=== PATIENT | female | born 1945 | race Caucasian/White ===

== ENCOUNTER 2023-05-11 14:40 | Observation (INO) ==
[2023-05-11 15:04] LABS: BASOPHILS % (AUTO) 0.3 % (0.0-3.0); EOSINOPHILS % (AUTO) 0.2 % (0.0-7.0); HEMOGLOBIN 11.6 g/dl (12.0-16.0); IMMATURE GRANULOCYTE % (AUTO) 0.2 % (0.0-5.0); LYMPHOCYTES % (AUTO) 14.6 (10.0-50.0); MEAN CORPUSCULAR HEMOGLOBIN 27.1 pg (27.0-31.0); MEAN CORPUSCULAR HGB CONC 31.4 (31.8-35.4); MEAN CORPUSCULAR VOLUME 86.4 fl (81.0-99.0); MONOCYTES # (AUTO) 0.8 K/uL (0.4-2.0); MONOCYTES % (AUTO) 12.2 (0-10); NEUTROPHILS # (AUTO) 4.8 K/ul (2.0-6.9); NEUTROPHILS % (AUTO) 72.5 % (42.2-75.2); PLATELET COUNT 161 10^3/uL (140-440); RDW COEFFICIENT OF VARIATION 15.3 % (11.6-14.8); RED BLOOD COUNT 4.28 10^6/ul (4.20-5.40); WHITE BLOOD COUNT 6.66 K/ul (4.6-10.2)
[2023-05-11 15:20] LABS: ALANINE AMINOTRANSFERASE 19.1 U/L (0-35); ALBUMIN 4.14 g/dL (3.5-5.0); ASPARTATE AMINO TRANSFERASE 31.5 U/L (14-36); BILIRUBIN,TOTAL 0.58 mg/dL (0.2-1.3); BLOOD UREA NITROGEN 29.8 mg/dL (7-17); CALCIUM 9.31 mg/dL (8.4-10.2); CARBON DIOXIDE 31.4 mmol/L (22-30.0); CHLORIDE 99.5 mmol/L (98-107); CREATININE 1.04 mg/dL (0.60-1.30); POTASSIUM 3.62 mmol/L (3.5-5.1); SODIUM 137.7 mmol/L (134.5-145); TOTAL PROTEIN 8.9 g/dL (6.3-8.2)
--- NOTE | 2023-05-11 15:46 | ED.PDOC ---
General ED Provider: Dr. CHRISTIANE MOORE DO Chief Complaint: Weakness Stated Complaint: Patient is a 78 yo F here for family concern for diarrhea at SNF patient arrives afebrile and vitally stable by EMS, no interventions en route Patient alert and oriented x4 CGS 15 Patient has no complaints I explained her SNF and family concern She allows for blood draw swabs UA and declines advanced CT imaging Patient declines falls or injuries No recent surgeries Patient stable Time Seen by Provider: 05/11/23 14:42 Information Source: Patient, Family and EMT Primary Care Provider: VALENTINO GARCES Nursing and Triage Documentation Reviewed and Agree: Yes What is Opioid Naive?: *Opioid Naive implies the patient is not already taking opioids or not chronically receiving opioids on a daily basis. *PRN dosing is not "usually" associated with tolerance. *Patients are at higher risk of over-sedation and aspiration. What is Opioid Tolerant?: *Opioid Tolerance implies less than the expected response to an opioid. *Acquired tolerance is defined by the patient taking 60mg of oral morphine daily (or equianalgesic dose of another opioid) for 1 week or more. *Often associated with chronic pain. *May take more than usual dose to achieve desired pain control. Review of Systems Review Of Systems Constitutional: Denies Chills or Fever Eyes: Denies Blindness or Foreign body sensation Ears, Nose, Mouth, Throat: Denies Ear pain or Nose pain Respiratory: Denies Cough or Stridor Cardiac: Denies Chest pain, Palpitations or Syncope GI: Denies Abdominal pain, Constipated or Diarrhea : Denies Burning, Dysuria or Flank pain Musculoskeletal: Denies Back pain or Joint pain Skin: Denies Bruising or Change in hair/nails Neurological: Reports No symptoms Endocrine: Reports No symptoms Hematologic/Lymphatic: Reports No symptoms All Other Systems: Reviewed and Negative Physical Exam Physical Exam Appearance: Reports Well-appearing, Well-nourished and Obese Ill-appearing: Not Applicable Pain Distress: Not Applicable Eyes: Reports WANDA, EOMI and Conjunctiva clear ENT: Reports Ears normal, Nose normal and Oropharynx normal Neck: Supple Respiratory: Reports Airway patent and Breath sounds clear; Denies Crackles, Rhonchi or Wheezes Cardiovascular: Reports RRR and Pulses normal GI/: Reports Soft and Nontender Musculoskeletal: Reports Normal strength and ROM intact Skin: Reports Warm, Dry and Normal color Neurological: Reports Sensation intact and Motor intact Psychiatric: Reports Affect appropriate and Mood appropriate Interpretation EKG Interpretation EKG Interpretation By: ED Physician Time of EKG #1: 17:16 Interpretation: NSR no stemi QRS and QT wnl Radiology Interpretation Radiology Interpretation By: ED Physician Radiology Results: Negative Exam Interpreted: CXR Xray Comments: No gross fracture or pneumothorax Course Course 05/11/23 14:58 05/11/23 14:58 Orders, Labs, Meds: Lab Review 05/11/23 05/11/23 05/11/23 14:58 15:25 17:11 WBC 6.66 RBC 4.28 Hgb 11.6 L Hct 37.0 MCV 86.4 MCH 27.1 MCHC 31.4 L RDW Coeff of Venus 15.3 H Plt Count 161 Immature Gran % (Auto) 0.2 Neut % (Auto) 72.5 Lymph % (Auto) 14.6 [place] % (Auto) 12.2 H Eos % (Auto) 0.2 Baso % (Auto) 0.3 Neut # (Auto) 4.8 Lymph # (Auto) 1.0 [place] # (Auto) 0.8 Eos # (Auto) 0.0 Baso # (Auto) 0.0 Immature Gran # (Auto) 0.0 Puncture Site Base Excess O2 Saturation ABG pH ABG pCO2 ABG pO2 ABG HCO3 ABG Total CO2 Ernesto Test Hemoglobin Oxyhemoglobin Carboxyhemoglobin Total Hemoglobin FiO2 % Sodium 137.7 Potassium 3.62 Chloride 99.5 Carbon Dioxide 31.4 H Anion Gap 10.42 BUN 29.8 H Creatinine 1.04 Estimated GFR (MDRD) 51.00 BUN/Creatinine Ratio 28.65 Glucose 141.0 H Calcium 9.31 Total Bilirubin 0.58 AST 31.5 ALT 19.1 Alkaline Phosphatase 93.0 Troponin I < 0.012 Total Protein 8.90 H Albumin 4.14 Globulin 4.76 Albumin/Globulin Ratio 0.86 Influ A Molecular Assay Negative by naat Influ B Molecular Assay Negative by naat RSV Antigen Negative by naat SARS CoV-2 RNA Rapid YAENT Positive H 05/11/23 17:12 WBC RBC Hgb Hct MCV MCH MCHC RDW Coeff of Venus Plt Count Immature Gran % (Auto) Neut % (Auto) Lymph % (Auto) [place] % (Auto) Eos % (Auto) Baso % (Auto) Neut # (Auto) Lymph # (Auto) [place] # (Auto) Eos # (Auto) Baso # (Auto) Immature Gran # (Auto) Puncture Site [place] Base Excess 10.0 H O2 Saturation 92.1 L ABG pH 7.48 H ABG pCO2 45.0 ABG pO2 59.0 L* ABG HCO3 33.5 H ABG Total CO2 34.9 H Ernesto Test Pos Hemoglobin 0.4 Oxyhemoglobin 88.4 L Carboxyhemoglobin 0.7 Total Hemoglobin 11.0 L FiO2 % 21.0 Sodium Potassium Chloride Carbon Dioxide Anion Gap BUN Creatinine Estimated GFR (MDRD) BUN/Creatinine Ratio Glucose Calcium Total Bilirubin AST ALT Alkaline Phosphatase Troponin I Total Protein Albumin Globulin Albumin/Globulin Ratio Influ A Molecular Assay Influ B Molecular Assay RSV Antigen SARS CoV-2 RNA Rapid YANET Orders Category Date Time Status ADMIT OBSERVATION [PLACE PATIENT OBSERVATION] .TO ADMISSION 05/11/23 18:48 Active MEDSURG (MONITORED BED) ABG DRAW REQUEST Stat CARDIO 05/11/23 16:59 Completed EKG-(ED ONLY) Stat CARDIO 05/11/23 16:59 Completed NEBULIZER TREATMENT Routine CARDIO 05/11/23 19:14 Ordered OXYGEN Routine CARDIO 05/11/23 19:11 Ordered ACTIVITY .Early Mobilization for VTE Prevention CARE 05/11/23 19:11 Active INTAKE & OUTPUT Q8HR CARE 05/11/23 19:13 Active NPO REMINDER: IMAGING ONCE CARE 05/11/23 16:59 Active TELEMETRY MONITORING TELE CARE 05/11/23 18:48 Active VITAL SIGNS Q4HR CARE 05/11/23 19:13 Active REGULAR DIET DIETARY 05/12/23 Breakfast Ordered ABG COOX Stat LAB 05/11/23 17:12 Completed CBC W/ AUTO DIFF DAILY@0600 LAB 05/12/23 06:00 Ordered CBC W/ AUTO DIFF DAILY@0600 LAB 05/13/23 06:00 Ordered CBC W/ AUTO DIFF Stat LAB 05/11/23 14:58 Completed CMP [COMPREHENSIVE METABOLIC PANEL] Stat LAB 05/11/23 14:58 Completed COMPREHENSIVE METABOLIC PANEL DAILY@0600 LAB 05/12/23 06:00 Ordered COMPREHENSIVE METABOLIC PANEL DAILY@0600 LAB 05/13/23 06:00 Ordered FLU A & B MOLECULAR [FLU A/B MOLECULAR] Stat LAB 05/11/23 15:25 Completed RSV Stat LAB 05/11/23 15:25 Completed SARS COV-2 RNA RAPID YANET Stat LAB 05/11/23 15:25 Completed TROPONIN I Stat LAB 05/11/23 17:11 Completed UA [URINALYSIS C & S IF INDICATED] Stat LAB 05/11/23 14:42 Uncollected Acetaminophen [Tylenol] Meds 05/11/23 19:11 Ordered 650 mg PO Q4H PRN Albuterol Sulfate 0.083% Neb [Albuterol 0.083% Neb] Meds 05/11/23 19:14 Ordered 2.5 mg NEB RTQID PRN Dexamethasone Sod Phosphate [Decadron] Meds 05/12/23 09:00 Ordered 6 mg IVP DAILY Ipratropium/Albuterol Neb [Duoneb] Meds 05/12/23 00:00 Ordered 3 ml NEB RTQ6H Ondansetron HCl/Pf [Zofran 4 mg/2 ml] Meds 05/11/23 19:11 Ordered 4 mg IVP Q6H PRN Remdesivir [Veklury] 100 mg Meds 05/12/23 09:00 Ordered 0.9 % Sodium Chloride [Sodium Chloride 100Ml] 100 ml IV DAILY Remdesivir [Veklury] 200 mg Meds 05/11/23 19:11 Ordered 0.9 % Sodium Chloride [Sodium Chloride] [address] CHEST PE PROTOCOL Stat RADS 05/11/23 16:59 Completed CXR [CHEST, 2 VIEWS PA & LAT] Stat RADS 05/11/23 14:42 Completed Medications Generic Name Dose Route Start Last Admin Trade Name Freq PRN Reason Stop Dose Admin Acetaminophen 650 mg 05/11/23 19:11 Acetaminophen 325 Mg Tablet PO Q4H PRN Mild Pain Albuterol Sulfate 2.5 mg 05/11/23 19:14 Albuterol Sulfate 0.083% Vial.Neb NEB RTQID PRN Wheezing Albuterol/Ipratropium 3 ml 05/12/23 00:00 Ipratropium/Albuterol Vial.Neb NEB RTQ6H RIVER Dexamethasone Sodium Phosphate 6 mg 05/12/23 09:00 Dexamethasone Sod Phos 10 Mg/Ml Inj IVP DAILY RIVER Remdesivir 200 mg/ Sodium 250 mls @ 250 mls/hr 05/11/23 19:11 Chloride IV 05/11/23 20:10 ONCE ONE Remdesivir 100 mg/ Sodium 100 mls @ 200 mls/hr 05/12/23 09:00 Chloride IV 05/15/23 09:29 DAILY RIVER Ondansetron HCl 4 mg 05/11/23 19:11 Ondansetron Hcl/Pf 4 Mg/2 Ml Sdv IVP Q6H PRN Nausea / Vomiting Vital Signs: Temp Pulse Resp BP Pulse Ox 05/11/23 14:55 98 F 78 14 166/77 H 96 MDM: Patient is a 78 yo F here for viral symptoms Patient afebrile and hypoxic 90% 95% w 2 L NC Hx from patient and daughter and EMS chart review by me Exam concerning for hypoxia 3+ labs and 3+ image results reviewed by me Consult to hospitalist agrees with admission for covid hypoxia WDX: Covid 19, hypoxia, loose stools acute high complexity DDX: I considered shock, PE, stemi but these are less likely SDOH: Patient has best chance to improve with admission and further specialty care Patient amenable to admission All questions answered Discharge Plan Discharge Patient Disposition: PLACED OBSERVATION Discharge Problem: COVID-19, Hypoxia Did you review [place] [employer]GER for ALL controlled substances?: Not Applicable ED Provider: CHRISTIANE MOORE Condition: Good Physician Progress Note: []
[2023-05-11 16:03] LABS: SARS COV-2 RNA RAPID NAAT POSITIVE (NEGATIVE)
[2023-05-11 16:11] LABS: MOLECULAR FLU A NEGATIVE BY NAAT (NEGATIVE); MOLECULAR FLU B NEGATIVE BY NAAT (NEGATIVE); RSV MOLECULAR NEGATIVE BY NAAT (NEGATIVE)
--- NOTE | 2023-05-11 16:14 | DI ---
EXAM: CHEST RADIOGRAPH TECHNIQUE: Two views. Frontal and lateral. HISTORY: Weakness COMPARISON: 07/30/2022 FINDINGS: The patient's chin overlies the right lung apex. The visualized lungs are clear. The heart size is normal. Marked thoracic kyphosis with anterior wedging of mid-thoracic vertebral bodies. Previous left nayana l ORIF. IMPRESSION: 1. No acute cardiopulmonary disease.
[2023-05-11 17:32] LABS: ABG O2 HGB 88.4 % (95-100); ABG PH 7.48 (7.35-7.45); COHb 0.7 (0.5-1.5); HCO3 33.5 (21-28); MetHb 0.4 (0-1.5); TCO2 34.9 (19-24); sO2 92.1 % (94-98)
--- NOTE | 2023-05-11 18:37 | CT ---
EXAM: CT ANGIOGRAPHY CHEST (PE PROTOCOL) HISTORY: COVID-19, hypoxia TECHNIQUE: CTA chest with intravenous contrast. PE protocol. Multiplanar images were provided with MIP images and 3-D reconstructions. COMPARISON: None FINDINGS: Excessive respiratory motion artifact degrades image quality. No suggestion of pulmonary arterial thromboembolism is seen. The thoracic aorta has mild atherosclerotic disease. A few coron faby artery calcifications are present. There is mild cardiomegaly. No pericardial effusion. There is mild atelectasis, scarring or infiltrate/pneumonia in the lateral lower aspect of the right upper lobe. Lungs are otherwise grossly clear. There is no pneumothorax, pleural fluid or vascular conges tion. No interstitial edema. The bones reveal exaggerated thoracic kyphosis. IMPRESSION: 1. Excessive respiratory motion artifact degrades image quality. No suggestion of pulmonary arteria l thromboembolism is seen. 2. Mild atherosclerotic disease. 3. Mild cardiomegaly. 4. There is mild atelectasis, scarring or infiltrate/pneumonia in the lateral lower aspect of the ri ght upper lobe. Lungs are otherwise grossly clear. - - - - - All CT scans are performed using dose optimization techniques as appropriate to the performed exam an d include at least one of the following: Automated exposure control, adjustment of the mA and/or kV according t o size, and the use of iterative reconstruction technique.
[2023-05-11] MEDS ORDERED: TYLENOL PO PRN (19:11)
[2023-05-11] MEDS ORDERED: ZOFRAN 4 MG/2 ML IVP PRN (19:11)
[2023-05-11] MEDS ORDERED: ALBUTEROL 0.083% NEB NEB PRN (19:14)
[2023-05-11 22:39] VITALS: BMI 41.5
[2023-05-11] MEDS: DUONEB NEB SCH (23:43)
[2023-05-12] MEDS: DUONEB NEB SCH ×3 (04:47→17:55)
[2023-05-12 05:57] LABS: BASOPHILS % (AUTO) 0.2 % (0.0-3.0); EOSINOPHILS % (AUTO) 0.2 % (0.0-7.0); HEMATOCRIT 35.2 % (37.0-47.0); HEMOGLOBIN 10.9 g/dl (12.0-16.0); LYMPHOCYTES # (AUTO) 1.5 K/uL (0.60-3.4); LYMPHOCYTES % (AUTO) 27.1 (10.0-50.0); MEAN CORPUSCULAR HEMOGLOBIN 26.7 pg (27.0-31.0); MEAN CORPUSCULAR VOLUME 86.1 fl (81.0-99.0); MONOCYTES % (AUTO) 17.4 (0-10); NEUTROPHILS % (AUTO) 55.1 % (42.2-75.2); PLATELET COUNT 160 10^3/uL (140-440); RDW COEFFICIENT OF VARIATION 15.3 % (11.6-14.8); RED BLOOD COUNT 4.09 10^6/ul (4.20-5.40); WHITE BLOOD COUNT 5.47 K/ul (4.6-10.2)
[2023-05-12 06:11] LABS: ALANINE AMINOTRANSFERASE 17.9 U/L (0-35); ALBUMIN 3.85 g/dL (3.5-5.0); ALKALINE PHOSPHATASE 89.6 U/L (53-141); ASPARTATE AMINO TRANSFERASE 41.5 U/L (14-36); BILIRUBIN,TOTAL 0.64 mg/dL (0.2-1.3); BLOOD UREA NITROGEN 21.7 mg/dL (7-17); CALCIUM 8.79 mg/dL (8.4-10.2); CARBON DIOXIDE 28.9 mmol/L (22-30.0); CHLORIDE 101.3 mmol/L (98-107); CREATININE 0.83 mg/dL (0.60-1.30); GLUCOSE 115.8 mg/dL (74-106); POTASSIUM 3.42 mmol/L (3.5-5.1); SODIUM 136.7 mmol/L (134.5-145); TOTAL PROTEIN 8.31 g/dL (6.3-8.2)
[2023-05-12] MEDS ORDERED: K-DUR PO ONE ×2 (08:08→10:30)
[2023-05-12 08:49] LABS: PROTHROMBIN TIME 10.5 SEC (9.3-11.0)
[2023-05-12] MEDS ORDERED: VEKLURY 200 MG in SODIUM CHLORIDE 250 ML IV ONE (09:00)
[2023-05-12] MEDS ORDERED: NORCO 5-325 PO PRN (10:54)
[2023-05-12] MEDS ORDERED: HYDROCHLOROTHIAZIDE 12.5 MG PO SCH (11:00)
[2023-05-12] MEDS ORDERED: PROTONIX PO SCH (11:00)
[2023-05-12] MEDS ORDERED: BUSPAR PO PRN (11:00)
[2023-05-12] MEDS: DECADRON IVP SCH (11:17)
[2023-05-12] MEDS: ALTACE PO SCH (12:10)
[2023-05-12] MEDS: CARDIZEM CD PO SCH (12:10)
[2023-05-12] MEDS: INDERAL PO SCH (12:10)
[2023-05-12] MEDS: MYRBETRIQ PO SCH (12:10)
[2023-05-12] MEDS: NEURONTIN PO SCH ×2 (12:11→20:42)
[2023-05-12] MEDS: LEXAPRO PO SCH (12:11)
[2023-05-12] MEDS: FLONASE NAS PRN (12:12)
[2023-05-12] MEDS: NYSTOP POWDER TP SCH ×2 (12:12→21:11)
[2023-05-12] MEDS: HYDROCHLOROTHIAZIDE PO SCH (12:12)
--- NOTE | 2023-05-12 14:00 | PCM ---
Date of Service Date Seen by Provider: 05/12/23 Time Seen by Provider: 09:35 Admit Day/Time Admission Date: 05/11/23 Reason for Admission Chief Complaint: COVID +, HYPOXIA Hospital Provider Hospital Provider: PAYAL LEONG, [facility] Primary Care Physician Primary Care Physician: VALENTINO GARCES History of Present Illness History of Present Illness: 78 yo female presented to the ER with diarrhea over last several days. Patient has pmh of dementia and is unable to provide HPI. She does report not feeling well over the last several days and her daughter brought her here. Per ER provider, patient was found to be hypoxic in the ER with O2 sat around 90%. Placed on 2L and sat improved to 95-96%. Patient was found to be Covid positive. 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 She has been refusing medications to help with treatment of Covid-19. Discussed importance of them and is refusing all IV medications to help with condition. If condition continues to worsen, will have further discussion with family. Case Discussed With Case Discussed With: Patient's case was discussed with the ER Physicians, Dr. 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 - Other intervertebral disc degeneration, lumbar region (ICD-10) Scoliosis M41.9 - Scoliosis, unspecified (ICD-10) Fibromyalgia M79.7 - Fibromyalgia (ICD-10) Osteoporosis M81.0 - Age-related osteoporosis without current pathological fracture (ICD- 10) Diabetes type 2, controlled E11.9 - Type 2 diabetes mellitus without complications (ICD-10) Surgical History History of bilateral breast reduction surgery Z98.890 - Other specified postprocedural states (ICD-10) Hx of tonsillectomy Z90.89 - Acquired absence of other organs (ICD-10) Hx of cholecystectomy Z90.49 - Acquired absence of other specified parts of digestive tract (ICD- 10) History of appendectomy Z90.49 - Acquired absence of other specified parts of digestive tract (ICD- 10) Family History Other No known health problems Social History Smoking and tobacco status: Former smoker Allergies Allergies Allergy/AdvReac Type Severity Reaction Status Date / Time No Known Allergies Allergy Unverified 05/11/23 21:32 Current Medications Home Medications nirmatrelvir 300 mg (150 mg x2)-ritonavir 100 mg tablet,dose pack (Paxlovid) See Rx Instructions PO .COMPLEX #30 ea 05/11/23 [Rx Last Taken Unknown] buspirone 5 mg tablet 5 mg PO TID PRN anxiety 05/12/23 [History Confirmed 05/12/23 Last Taken Unknown] diltiazem HCl 120 mg capsule,extended release 24 hr (Cardizem CD) 120 mg PO DAILY 05/12/23 [History Confirmed 05/12/23 Last Taken Unknown] escitalopram oxalate 20 mg tablet 20 mg PO DAILY 05/12/23 [History Confirmed 05/12/23 Last Taken Unknown] fluticasone propionate 50 mcg/actuation nasal spray,suspension (24 Hour Allergy Relief) 1 spray intranasal DAILY PRN allergy symptoms 05/12/23 [History Confirmed 05/12/23 Last Taken Unknown] gabapentin 600 mg tablet 600 mg PO BID 05/12/23 [History Confirmed 05/12/23 Last Taken Unknown] hydrochlorothiazide 12.5 mg capsule 12.5 mg PO DAILY 05/12/23 [History Confirmed 05/12/23 Last Taken Unknown] hydrocodone 5 mg-acetaminophen 325 mg tablet 1 tab PO Q6H 05/12/23 [History Confirmed 05/12/23 Last Taken Unknown] insulin glargine 100 unit/mL (3 mL) subcutaneous pen (Lantus Solostar U-100 Insulin) 20 unit subcut DAILY 05/12/23 [History Confirmed 05/12/23 Last Taken Unknown] insulin lispro 100 unit/mL subcutaneous pen 1 sliding scale dose subcut DIRECTED 05/12/23 [History Confirmed 05/12/23 Last Taken Unknown] mirabegron 25 mg tablet,extended release 24 hr (Myrbetriq) 25 mg PO DAILY 05/12/23 [History Confirmed 05/12/23 Last Taken Unknown] nystatin 100,000 unit/gram topical powder 1 applic topical BID 05/12/23 [History Confirmed 05/12/23 Last Taken Unknown] pantoprazole 40 mg tablet,delayed release 40 mg PO BID 05/12/23 [History Confirmed 05/12/23 Last Taken Unknown] propranolol 20 mg tablet 20 mg PO DAILY 05/12/23 [History Confirmed 05/12/23 Last Taken Unknown] ramipril 5 mg capsule 5 mg PO DAILY 05/12/23 [History Confirmed 05/12/23 Last Taken Unknown] Home Acetaminophen (Acetaminophen 325 Mg Tablet) 650 mg PO Q4H PRN PRN Reason: Mild Pain Hydrocodone Bitart/Acetaminophen (Hydrocodone Bit/Acetaminophen 5/325 Mg Tablet) 1 tab PO Q6H PRN PRN Reason: Pain Albuterol Sulfate (Albuterol Sulfate 0.083% Vial.Neb) 2.5 mg NEB RTQID PRN PRN Reason: Wheezing Albuterol/Ipratropium (Ipratropium/Albuterol Vial.Neb) 3 ml NEB RTQ6H [facility] Last Admin: 05/12/23 11:22 Dose: 3 ml Buspirone HCl (Buspirone Hcl 10 Mg Tablet) 5 mg PO TID PRN PRN Reason: Anxiety Last Admin: 05/12/23 12:11 Dose: 5 mg Dexamethasone Sodium Phosphate (Dexamethasone Sod Phos 10 Mg/Ml Inj) 6 mg IVP DAILY [facility] Last Admin: 05/12/23 11:17 Dose: Not Given Diltiazem HCl (Diltiazem Hcl 120 Mg Cap.Er.24h) 120 mg PO DAILY [facility] Last Admin: 05/12/23 12:10 Dose: 120 mg Escitalopram Oxalate (Escitalopram Oxalate 10 Mg Tablet) 20 mg PO DAILY [facility] Last Admin: 05/12/23 12:11 Dose: 20 mg Fluticasone Propionate (Fluticasone Propionate 16 Gm Nasal [place]) 1 spray IRENA DAILY PRN PRN Reason: Allergy Symptoms Last Admin: 05/12/23 12:12 Dose: 1 spray Gabapentin (Gabapentin 300 Mg Capsule) 600 mg PO BID [facility] Last Admin: 05/12/23 12:11 Dose: 600 mg Hydrochlorothiazide (Hydrochlorothiazide 25 Mg Tablet) 12.5 mg PO DAILY [facility] Last Admin: 05/12/23 12:12 Dose: 12.5 mg Remdesivir 100 mg/ Sodium (Chloride) 100 mls @ 200 mls/hr IV DAILY [facility] Stop: 05/16/23 09:29 Insulin Glargine (Insulin Glargine,Hum.Rec.Anlog 100 Units/Ml) 20 unit SUBCUT DAILY [facility] Insulin Human Lispro (Insulin Lispro 100 Unit/Ml Vial) 0 unit SUBCUT PRN PRN; Protocol PRN Reason: Hyperglycemia Mirabegron (Mirabegron 25 Mg Tab.Er.24h) 25 mg PO DAILY [facility] Last Admin: 05/12/23 12:10 Dose: 25 mg Nystatin (Nystatin 15 Gm Powder) 1 applic TP BID [facility] Last Admin: 05/12/23 12:12 Dose: 1 applic Ondansetron HCl (Ondansetron Hcl/Pf 4 Mg/2 Ml Sdv) 4 mg IVP Q6H PRN PRN Reason: Nausea / Vomiting Pantoprazole Sodium (Pantoprazole Sodium 40 Mg Tablet.) 40 mg PO 0900,2100 [facility] Propranolol HCl (Propranolol Hcl 20 Mg Tablet) 20 mg PO DAILY [facility] Last Admin: 05/12/23 12:10 Dose: 20 mg Ramipril (Ramipril 2.5 Mg Capsule) 5 mg PO DAILY [facility] Last Admin: 05/12/23 12:10 Dose: 5 mg Discontinued Medications Buspirone HCl (Buspirone Hcl 10 Mg Tablet) 5 mg PO TID [facility] Remdesivir 200 mg/ Sodium (Chloride) 250 mls @ 250 mls/hr IV ONCE ONE Stop: 05/12/23 09:59 Last Admin: 05/12/23 13:23 Dose: Not Given Pantoprazole Sodium (Pantoprazole Sodium 40 Mg Tablet.) 40 mg PO BIDAC2 [facility] Potassium Chloride (Potassium Chloride 20 Meq Tab) 40 meq PO ONCE ONE Stop: 05/12/23 10:31 Last Admin: 05/12/23 10:28 Dose: 40 meq Opioid Naive vs. Tolerant Does Patient Take Opioids?: Yes Is Patient Opioid Naive?: No What is Opioid Naive?: *Opioid Naive implies the patient is not already taking opioids or not chronically receiving opioids on a daily basis. *PRN dosing is not "usually" associated with tolerance. *Patients are at higher risk of over-sedation and aspiration. Is Patient Opioid Tolerant?: No What is Opioid Tolerant?: *Opioid Tolerance implies less than the expected response to an opioid. *Acquired tolerance is defined by the patient taking 60mg of oral morphine daily (or equianalgesic dose of another opioid) for 1 week or more. *Often associated with chronic pain. *May take more than usual dose to achieve desired pain control. Physical examination Most Recent Vital Signs: Most Recent Vital Signs Temperature 98.1 F 05/11/23 22:00 Temperature Source Tympanic 05/12/23 10:00 Temperature Source Oral 05/11/23 14:55 Pulse Rate 89 05/12/23 10:00 Respiratory Rate 15 05/12/23 10:00 Blood Pressure 144/69 H 05/12/23 10:00 Blood Pressure Mean 94 05/12/23 10:00 Blood Pressure Right Arm 167/78 05/11/23 21:05 Blood Pressure Location Right Arm 05/12/23 10:00 Blood Pressure Position Supine 05/12/23 10:00 O2 Sat by Pulse Oximetry 99 05/12/23 10:00 Oxygen Delivery Method Nasal Cannula 05/12/23 13:55 Oxygen Flow Rate 2 05/12/23 10:00 Height 5 ft 4 in 05/11/23 21:05 Weight 242 lb 6 oz 05/11/23 21:05 Telemetry Type Bedside Monitor 05/12/23 13:00 Telemetry Monitoring Continues 05/12/23 13:00 Telemetry Heart Rate 67 05/12/23 13:00 Telemetry SPO2 100 05/12/23 13:00 EKG HI Interval 0.07 L 05/12/23 13:00 EKG QRS Interval 0.06 05/12/23 13:00 Telemetry Strip Reading SR 05/12/23 13:00 Appearance: Positive No Apparent Distress Skin: Positive Warm and Good Turgor HEENT: Positive Normocephalic, Atraumatic and PERRLA Neck: Positive Supple and Midline Trachea Chest/Lungs: Positive Symmetrical With Equal Breath Sounds, Clear to Auscultation Bilaterally and Good Air Movement all 4 Lung Go Heart: Positive RRR and Pulses Normal GI/: Positive Soft, Nontender, Bowel Sounds Normal, No Distention and No Organomegaly Musculoskeletal: Positive Not Examined Extremities: Positive Intact Peripheral Pulses, Stable Joints Without Laxity and Good ROM in All Joints Neurological: Positive Sensation Intact, Motor intact, Reflexes Intact, Alert and Disorinted Labs This Visit Labs This Visit: Labs This Visit 05/11/23 05/11/23 05/11/23 14:58 15:25 17:11 WBC 6.66 RBC 4.28 Hgb 11.6 L Hct 37.0 MCV 86.4 MCH 27.1 MCHC 31.4 L RDW Coeff of Venus 15.3 H Plt Count 161 Immature Gran % (Auto) 0.2 Neut % (Auto) 72.5 Lymph % (Auto) 14.6 [place] % (Auto) 12.2 H Eos % (Auto) 0.2 Baso % (Auto) 0.3 Neut # (Auto) 4.8 Lymph # (Auto) 1.0 [place] # (Auto) 0.8 Eos # (Auto) 0.0 Baso # (Auto) 0.0 Immature Gran # (Auto) 0.0 PT INR Puncture Site Base Excess O2 Saturation ABG pH ABG pCO2 ABG pO2 ABG HCO3 ABG Total CO2 Ernesto Test Hemoglobin Oxyhemoglobin Carboxyhemoglobin Total Hemoglobin FiO2 % Sodium 137.7 Potassium 3.62 Chloride 99.5 Carbon Dioxide 31.4 H Anion Gap 10.42 BUN 29.8 H Creatinine 1.04 Estimated GFR (MDRD) 51.00 BUN/Creatinine Ratio 28.65 Glucose 141.0 H Calcium 9.31 Total Bilirubin 0.58 AST 31.5 ALT 19.1 Alkaline Phosphatase 93.0 Troponin I < 0.012 Total Protein 8.90 H Albumin 4.14 Globulin 4.76 Albumin/Globulin Ratio 0.86 Influ A Molecular Assay Negative by naat Influ B Molecular Assay Negative by naat RSV Antigen Negative by naat SARS CoV-2 RNA Rapid YANET Positive H 05/11/23 05/12/23 05/12/23 17:12 05:49 08:33 WBC 5.47 RBC 4.09 L Hgb 10.9 L Hct 35.2 L MCV 86.1 MCH 26.7 L MCHC 31.0 L RDW Coeff of Venus 15.3 H Plt Count 160 Immature Gran % (Auto) 0.0 Neut % (Auto) 55.1 Lymph % (Auto) 27.1 [place] % (Auto) 17.4 H Eos % (Auto) 0.2 Baso % (Auto) 0.2 Neut # (Auto) 3.0 Lymph # (Auto) 1.5 [place] # (Auto) 1.0 Eos # (Auto) 0.0 Baso # (Auto) 0.0 Immature Gran # (Auto) 0.0 PT 10.5 INR 1.01 Puncture Site [place] Base Excess 10.0 H O2 Saturation 92.1 L ABG pH 7.48 H ABG pCO2 45.0 ABG pO2 59.0 L* ABG HCO3 33.5 H ABG Total CO2 34.9 H Ernesto Test Pos Hemoglobin 0.4 Oxyhemoglobin 88.4 L Carboxyhemoglobin 0.7 Total Hemoglobin 11.0 L FiO2 % 21.0 Sodium 136.7 Potassium 3.42 L Chloride 101.3 Carbon Dioxide 28.9 Anion Gap 9.92 BUN 21.7 H Creatinine 0.83 Estimated GFR (MDRD) 66.00 BUN/Creatinine Ratio 26.14 Glucose 115.8 H Calcium 8.79 Total Bilirubin 0.64 AST 41.5 H ALT 17.9 Alkaline Phosphatase 89.6 Troponin I Total Protein 8.31 H Albumin 3.85 Globulin 4.46 Albumin/Globulin Ratio 0.86 Influ A Molecular Assay Influ B Molecular Assay RSV Antigen SARS CoV-2 RNA Rapid YANET Imaging Imaging: EXAM: CHEST RADIOGRAPH TECHNIQUE: Two views. Frontal and lateral. HISTORY: Weakness COMPARISON: 07/30/2022 FINDINGS: The patient's chin overlies the right lung apex. The visualized lungs are clear. The heart size is normal. Marked thoracic kyphosis with anterior wedging of mid-thoracic vertebral bodies. Previous left humeral ORIF. IMPRESSION: 1. No acute cardiopulmonary disease. Review Statement Review Statement: I have independently reviewed and interpreted the labs/EKGs/imaging that were ordered by the ER provider. I have reviewed all outside records that are available currently in our EMR including imaging/notes/labs from previous visits. Plan Plan: 1. Acute Hypoxic Respiratory Failure in the setting of Covid-19 - offered remdesivir and steroids, pt refusing. Continue to wean oxygen. nebs 2. Covid-19 - see above plan 3. Diabetes Mellitus, Type 2 - ADA diet, continue home insulin regimen 4. Hypertension - chronic, continue home medications 5. Hyperlipidemia - chronic, continue home medications DVT Prophylaxis: Up with assist Time Spent: Greater than 80 minutes spent with patient, 50% of the time spent with this patient was devoted to counseling and coordination of care. [facility] minutes spent discussing advance care planning. Disposition: Admit to: Med/surg Observation Full Code Discussed Plan of Care with Dr. Kyle Bell. Medications Medication Orders: Medications Ordered Category Date Time Status Acetaminophen [Tylenol] Meds 05/11/23 19:11 Active 650 mg PO Q4H PRN Albuterol Sulfate 0.083% Neb [Albuterol 0.083% Neb] Meds 05/11/23 19:14 Active 2.5 mg NEB RTQID PRN Buspirone HCl [Buspar] Meds 05/12/23 11:00 Active 5 mg PO TID PRN Dexamethasone Sod Phosphate [Decadron] Meds 05/12/23 09:00 Active 6 mg IVP DAILY Diltiazem HCl [Cardizem Cd] Meds 05/12/23 11:00 Active 120 mg PO DAILY Escitalopram Oxalate [Lexapro] Meds 05/12/23 11:00 Active 20 mg PO DAILY Fluticasone Propionate [Flonase] Meds 05/12/23 10:54 Active 1 spray IRENA DAILY PRN Gabapentin [Neurontin] Meds 05/12/23 11:00 Active 600 mg PO BID Hydrochlorothiazide Meds 05/12/23 11:30 Active 12.5 mg PO DAILY Hydrocodone Bit/Acetaminophen [[place] 5-325] Meds 05/12/23 10:54 Active 1 tab PO Q6H PRN Insulin Glargine,Hum.rec.anlog [Lantus] Meds 05/13/23 09:00 Active 20 unit SUBCUT DAILY Insulin Lispro [Humalog] Meds 05/12/23 11:10 Active See Protocol SUBCUT PRN PRN Ipratropium/Albuterol Neb [Duoneb] Meds 05/12/23 00:00 Active 3 ml NEB RTQ6H Mirabegron [Myrbetriq] Meds 05/12/23 11:00 Active 25 mg PO DAILY Nystatin [Nystop Powder] Meds 05/12/23 11:00 Active 1 applic TP BID Ondansetron HCl/Pf [Zofran 4 mg/2 ml] Meds 05/11/23 19:11 Active 4 mg IVP Q6H PRN Pantoprazole Sodium [Protonix] Meds 05/12/23 21:00 Active 40 mg PO 0900,2100 Propranolol HCl [Inderal] Meds 05/12/23 11:00 Active 20 mg PO DAILY Ramipril [Altace] Meds 05/12/23 11:00 Active 5 mg PO DAILY Remdesivir [Veklury] 100 mg Meds 05/13/23 09:00 Active 0.9 % Sodium Chloride [Sodium Chloride 100Ml] 100 ml IV DAILY
[2023-05-12] MEDS ORDERED: BUSPAR PO SCH (15:00)
[2023-05-12] MEDS: PROTONIX PO SCH (20:42)
[2023-05-13] MEDS: DUONEB NEB SCH ×5 (00:07→23:52)
[2023-05-13 05:35] LABS: BASOPHILS % (AUTO) 0.3 % (0.0-3.0); EOSINOPHILS # (AUTO) 0.2 K/ul (0.0-0.7); EOSINOPHILS % (AUTO) 2.8 % (0.0-7.0); HEMATOCRIT 37.4 % (37.0-47.0); HEMOGLOBIN 11.3 g/dl (12.0-16.0); IMMATURE GRANULOCYTE % (AUTO) 0.2 % (0.0-5.0); LYMPHOCYTES # (AUTO) 1.5 K/uL (0.60-3.4); LYMPHOCYTES % (AUTO) 25.7 (10.0-50.0); MEAN CORPUSCULAR HEMOGLOBIN 26.5 pg (27.0-31.0); MEAN CORPUSCULAR HGB CONC 30.2 (31.8-35.4); MEAN CORPUSCULAR VOLUME 87.8 fl (81.0-99.0); MONOCYTES # (AUTO) 0.7 K/uL (0.4-2.0); MONOCYTES % (AUTO) 12.2 (0-10); NEUTROPHILS # (AUTO) 3.4 K/ul (2.0-6.9); NEUTROPHILS % (AUTO) 58.8 % (42.2-75.2); PLATELET COUNT 161 10^3/uL (140-440); RDW COEFFICIENT OF VARIATION 15.7 % (11.6-14.8); RED BLOOD COUNT 4.26 10^6/ul (4.20-5.40); WHITE BLOOD COUNT 5.73 K/ul (4.6-10.2)
[2023-05-13 05:40] LABS: PROTHROMBIN TIME 10.1 SEC (9.3-11.0)
[2023-05-13 05:49] LABS: ALANINE AMINOTRANSFERASE 17.5 U/L (0-35); ALBUMIN 3.58 g/dL (3.5-5.0); ALKALINE PHOSPHATASE 88.4 U/L (53-141); BILIRUBIN,TOTAL 0.54 mg/dL (0.2-1.3); BLOOD UREA NITROGEN 34.3 mg/dL (7-17); CALCIUM 8.68 mg/dL (8.4-10.2); CARBON DIOXIDE 29.1 mmol/L (22-30.0); CHLORIDE 102.7 mmol/L (98-107); CREATININE 1.22 mg/dL (0.60-1.30); GLUCOSE 155.1 mg/dL (74-106); POTASSIUM 3.89 mmol/L (3.5-5.1); SODIUM 137.1 mmol/L (134.5-145); TOTAL PROTEIN 7.86 g/dL (6.3-8.2)
[2023-05-13] MEDS: CARDIZEM CD PO SCH (08:45)
[2023-05-13] MEDS: NEURONTIN PO SCH ×2 (08:45→21:08)
[2023-05-13] MEDS: ALTACE PO SCH (08:45)
[2023-05-13] MEDS: LEXAPRO PO SCH (08:45)
[2023-05-13] MEDS: MYRBETRIQ PO SCH (08:46)
[2023-05-13] MEDS: PROTONIX PO SCH ×2 (08:46→21:09)
[2023-05-13] MEDS: HYDROCHLOROTHIAZIDE PO SCH (08:46)
[2023-05-13] MEDS: INDERAL PO SCH (08:47)
[2023-05-13] MEDS: NYSTOP POWDER TP SCH ×2 (08:48→21:09)
[2023-05-13] MEDS ORDERED: LANTUS SUBCUT SCH ×2 (09:00→13:01)
[2023-05-13] MEDS ORDERED: VEKLURY 200 MG in SODIUM CHLORIDE 250 ML IV ONE (09:00)
--- NOTE | 2023-05-13 10:13 | PCM.PROG ---
Date/Time Seen Date Seen by Provider: 05/13/23 Time Seen by Provider: 09:00 Provider [facility] Chief Complaint Chief Complaint: COVID +, HYPOXIA Subjective Subjective: Continuing to require oxygen. Feeling some better today. Wants remdesivir now. Objective Appearance: Positive No Apparent Distress Chest/Lungs: Positive Symmetrical With Equal Breath Sounds, Clear to Auscultation Bilaterally and Good Air Movement all 4 Lung Go Heart: Positive RRR and Pulses Normal GI/: Positive Soft, Nontender, Bowel Sounds Normal, No Distention and No Organomegaly Musculoskeletal: Positive Not Examined Neurological: Positive Sensation Intact, Motor intact, Reflexes Intact, Alert and Disorinted Vital Signs Vital Signs: Vital Signs: Last 24 Hours 05/12/23 10:52 05/12/23 12:00 05/12/23 13:00 Temperature Temperature Source Pulse Rate Respiratory Rate Blood Pressure Blood Pressure Mean Blood Pressure Location Blood Pressure Position O2 Sat by Pulse Oximetry Oxygen Delivery Method Nasal Cannula Nasal Cannula Nasal Cannula Oxygen Flow Rate Telemetry Type Telemetry Monitoring Telemetry Heart Rate Telemetry SPO2 EKG LA Interval EKG QRS Interval Telemetry Strip Reading 05/12/23 13:00 05/12/23 13:55 05/12/23 14:00 Temperature Temperature Source Pulse Rate 68 Respiratory Rate 19 Blood Pressure 160/92 H Blood Pressure Mean 114 Blood Pressure Location Blood Pressure Position Sitting O2 Sat by Pulse Oximetry 99 Oxygen Delivery Method Nasal Cannula Nasal Cannula Oxygen Flow Rate 2 Telemetry Type Bedside Monitor Telemetry Monitoring Continues Telemetry Heart Rate 67 Telemetry SPO2 100 EKG LA Interval 0.07 L EKG QRS Interval 0.06 Telemetry Strip Reading SR 05/12/23 14:00 05/12/23 15:00 05/12/23 15:55 Temperature Temperature Source Pulse Rate Respiratory Rate Blood Pressure Blood Pressure Mean Blood Pressure Location Blood Pressure Position O2 Sat by Pulse Oximetry 100 Oxygen Delivery Method Nasal Cannula Nasal Cannula Nasal Cannula Oxygen Flow Rate 2 Telemetry Type Telemetry Monitoring Telemetry Heart Rate Telemetry SPO2 EKG LA Interval EKG QRS Interval Telemetry Strip Reading 05/12/23 17:00 05/12/23 17:40 05/12/23 18:00 Temperature Temperature Source Pulse Rate 58 L Respiratory Rate 18 Blood Pressure 160/62 H Blood Pressure Mean 94 Blood Pressure Location Right Arm Blood Pressure Position Sitting O2 Sat by Pulse Oximetry 98 Oxygen Delivery Method Nasal Cannula Nasal Cannula Nasal Cannula Oxygen Flow Rate 2 Telemetry Type Telemetry Monitoring Telemetry Heart Rate Telemetry SPO2 EKG LA Interval EKG QRS Interval Telemetry Strip Reading 05/12/23 19:00 05/12/23 19:00 05/12/23 19:54 Temperature Temperature Source Pulse Rate Respiratory Rate Blood Pressure Blood Pressure Mean Blood Pressure Location Blood Pressure Position O2 Sat by Pulse Oximetry 97 Oxygen Delivery Method Nasal Cannula Nasal Cannula Oxygen Flow Rate 1 Telemetry Type Bedside Monitor Telemetry Monitoring Continues Telemetry Heart Rate 67 Telemetry SPO2 100 EKG LA Interval 0.13 EKG QRS Interval 0.08 Telemetry Strip Reading nsr 05/12/23 20:00 05/12/23 20:00 05/12/23 21:00 Temperature Temperature Source Pulse Rate Respiratory Rate Blood Pressure Blood Pressure Mean Blood Pressure Location Blood Pressure Position O2 Sat by Pulse Oximetry Oxygen Delivery Method Nasal Cannula Nasal Cannula Nasal Cannula Oxygen Flow Rate 2 Telemetry Type Telemetry Monitoring Telemetry Heart Rate Telemetry SPO2 EKG LA Interval EKG QRS Interval Telemetry Strip Reading 05/12/23 22:00 05/12/23 22:00 05/12/23 23:00 Temperature 98.1 F Temperature Source Temporal Artery Scan Pulse Rate 60 Respiratory Rate 19 Blood Pressure 133/48 L Blood Pressure Mean 76 Blood Pressure Location Right Radial Artery Blood Pressure Position Supine O2 Sat by Pulse Oximetry 98 Oxygen Delivery Method Nasal Cannula Nasal Cannula Nasal Cannula Oxygen Flow Rate 2 Telemetry Type Telemetry Monitoring Telemetry Heart Rate Telemetry SPO2 EKG LA Interval EKG QRS Interval Telemetry Strip Reading 05/13/23 00:00 05/13/23 01:00 05/13/23 01:00 Temperature Temperature Source Pulse Rate Respiratory Rate Blood Pressure Blood Pressure Mean Blood Pressure Location Blood Pressure Position O2 Sat by Pulse Oximetry Oxygen Delivery Method Nasal Cannula Nasal Cannula Oxygen Flow Rate Telemetry Type Bedside Monitor Telemetry Monitoring Continues Telemetry Heart Rate 59 L Telemetry SPO2 99 EKG LA Interval 0.13 EKG QRS Interval 0.07 Telemetry Strip Reading sb 05/13/23 02:00 05/13/23 02:00 05/13/23 03:00 Temperature Temperature Source Pulse Rate 61 Respiratory Rate 18 Blood Pressure 95/40 L Blood Pressure Mean 58 Blood Pressure Location Right Radial Artery Blood Pressure Position Supine O2 Sat by Pulse Oximetry 99 Oxygen Delivery Method Nasal Cannula Nasal Cannula Nasal Cannula Oxygen Flow Rate 2 Telemetry Type Telemetry Monitoring Telemetry Heart Rate Telemetry SPO2 EKG LA Interval EKG QRS Interval Telemetry Strip Reading 05/13/23 04:00 05/13/23 05:00 05/13/23 05:27 Temperature Temperature Source Pulse Rate Respiratory Rate Blood Pressure Blood Pressure Mean Blood Pressure Location Blood Pressure Position O2 Sat by Pulse Oximetry 97 Oxygen Delivery Method Nasal Cannula Nasal Cannula Nasal Cannula Oxygen Flow Rate 2 Telemetry Type Telemetry Monitoring Telemetry Heart Rate Telemetry SPO2 EKG LA Interval EKG QRS Interval Telemetry Strip Reading 05/13/23 06:00 05/13/23 06:00 05/13/23 07:00 Temperature 97.7 F Temperature Source Oral Pulse Rate 67 Respiratory Rate 20 Blood Pressure 137/63 Blood Pressure Mean 87 Blood Pressure Location Right Arm Blood Pressure Position Supine O2 Sat by Pulse Oximetry 97 Oxygen Delivery Method Nasal Cannula Nasal Cannula Nasal Cannula Oxygen Flow Rate 2 Telemetry Type Telemetry Monitoring Telemetry Heart Rate Telemetry SPO2 EKG LA Interval EKG QRS Interval Telemetry Strip Reading 05/13/23 08:00 05/13/23 09:00 Temperature Temperature Source Pulse Rate Respiratory Rate Blood Pressure Blood Pressure Mean Blood Pressure Location Blood Pressure Position O2 Sat by Pulse Oximetry Oxygen Delivery Method Nasal Cannula Nasal Cannula Oxygen Flow Rate Telemetry Type Telemetry Monitoring Telemetry Heart Rate Telemetry SPO2 EKG LA Interval EKG QRS Interval Telemetry Strip Reading Lab Results Lab Results: Lab Results: Last 24 Hours 05/13/23 05:20 WBC 5.73 RBC 4.26 Hgb 11.3 L Hct 37.4 MCV 87.8 MCH 26.5 L MCHC 30.2 L RDW Coeff of Venus 15.7 H Plt Count 161 Immature Gran % (Auto) 0.2 Neut % (Auto) 58.8 Lymph % (Auto) 25.7 [place] % (Auto) 12.2 H Eos % (Auto) 2.8 Baso % (Auto) 0.3 Neut # (Auto) 3.4 Lymph # (Auto) 1.5 [place] # (Auto) 0.7 Eos # (Auto) 0.2 Baso # (Auto) 0.0 Immature Gran # (Auto) 0.0 PT 10.1 INR 0.97 Sodium 137.1 Potassium 3.89 Chloride 102.7 Carbon Dioxide 29.1 Anion Gap 9.19 BUN 34.3 H Creatinine 1.22 Estimated GFR (MDRD) 43.00 BUN/Creatinine Ratio 28.11 Glucose 155.1 H Calcium 8.68 Total Bilirubin 0.54 AST 35.0 ALT 17.5 Alkaline Phosphatase 88.4 Total Protein 7.86 Albumin 3.58 Globulin 4.28 Albumin/Globulin Ratio 0.83 Additional Comments Additional Comments: I have independently reviewed and interpreted the labs/EKGs/imaging ordered during this hospital stay. I have reviewed outside records that are available in our EMR that pertain to medical stay including imaging/notes/labs from previous visits. Active Medications Active Medications: Medications Generic Name Dose Route Start Last Admin Trade Name Freq PRN Reason Stop Dose Admin Acetaminophen 650 mg 05/11/23 19:11 Acetaminophen 325 Mg Tablet PO Q4H PRN Mild Pain Hydrocodone Bitart/Acetaminophen 1 tab 05/12/23 10:54 Hydrocodone Bit/Acetaminophen 5/325 Mg Tablet PO Q6H PRN Pain Albuterol Sulfate 2.5 mg 05/11/23 19:14 Albuterol Sulfate 0.083% Vial.Neb NEB RTQID PRN Wheezing Albuterol/Ipratropium 3 ml 05/12/23 00:00 05/13/23 05:36 Ipratropium/Albuterol Vial.Neb NEB 3 ml RTQ6H RIVER Administration Buspirone HCl 5 mg 05/12/23 11:00 05/12/23 12:11 Buspirone Hcl 10 Mg Tablet PO 5 mg TID PRN Administration Anxiety Dexamethasone Sodium Phosphate 6 mg 05/12/23 09:00 05/12/23 11:17 Dexamethasone Sod Phos 10 Mg/Ml Inj IVP Not Given DAILY RIVER Diltiazem HCl 120 mg 05/12/23 11:00 05/13/23 08:45 Diltiazem Hcl 120 Mg Cap.Er.24h PO 120 mg DAILY RIVER Administration Escitalopram Oxalate 20 mg 05/12/23 11:00 05/13/23 08:45 Escitalopram Oxalate 10 Mg Tablet PO 20 mg DAILY RIVER Administration Fluticasone Propionate 1 spray 05/12/23 10:54 05/12/23 12:12 Fluticasone Propionate 16 Gm Nasal [place] IRENA 1 spray DAILY PRN Administration Allergy Symptoms Gabapentin 600 mg 05/12/23 11:00 05/13/23 08:45 Gabapentin 300 Mg Capsule PO 600 mg BID RIVER Administration Hydrochlorothiazide 12.5 mg 05/12/23 11:30 05/13/23 08:46 Hydrochlorothiazide 25 Mg Tablet PO 12.5 mg DAILY RIVER Administration Remdesivir 100 mg/ Sodium 100 mls @ 200 mls/hr 05/14/23 09:00 Chloride IV 05/17/23 09:29 DAILY RIVER Insulin Glargine 20 unit 05/13/23 09:00 05/13/23 08:59 Insulin Glargine,Hum.Rec.Anlog 100 Units/Ml SUBCUT Not Given DAILY RIVER Insulin Human Lispro 0 unit 05/12/23 11:10 Insulin Lispro 100 Unit/Ml Vial SUBCUT PRN PRN Hyperglycemia Protocol Mirabegron 25 mg 05/12/23 11:00 05/13/23 08:46 Mirabegron 25 Mg Tab.Er.24h PO 25 mg DAILY RIVER Administration Nystatin 1 applic 05/12/23 11:00 05/13/23 08:48 Nystatin 15 Gm Powder TP 1 applic BID RIVER Administration Ondansetron HCl 4 mg 05/11/23 19:11 Ondansetron Hcl/Pf 4 Mg/2 Ml Sdv IVP Q6H PRN Nausea / Vomiting Pantoprazole Sodium 40 mg 05/12/23 21:00 05/13/23 08:46 Pantoprazole Sodium 40 Mg Tablet. PO 40 mg 0900,2100 RIVER Administration Propranolol HCl 20 mg 05/12/23 11:00 05/13/23 08:47 Propranolol Hcl 20 Mg Tablet PO 20 mg DAILY RIVER Administration Ramipril 5 mg 05/12/23 11:00 05/13/23 08:45 Ramipril 2.5 Mg Capsule PO 5 mg DAILY RIVER Administration Plan Plan: 1. Acute Hypoxic Respiratory Failure in the setting of Covid-19 - refused steroids, start remdesivir today. Continue to wean oxygen. nebs 2. Covid-19 - see above plan 3. Diabetes Mellitus, Type 2 - ADA diet, continue home insulin regimen 4. Hypertension - chronic, continue home medications 5. Hyperlipidemia - chronic, continue home medications DVT Prophylaxis: Up with assist Review Statement Review Statement: I have personally discussed and reviewed the patient's visit/currently labs/imaging/decision making with Dr. Bell, my supervising attending. Greater that 50 minutes spent with patient, 50% of the time spent with this patient was devoted to counseling and coordination of care.
[2023-05-13] MEDS: HUMALOG SUBCUT PRN ×2 (11:36→17:11)
[2023-05-13] MEDS: DECADRON IVP SCH (18:09)
[2023-05-13 19:43] LABS: BILIRUBIN,URINE Negative (NEGATIVE); CLARITY,URINE Slightly (CLEAR); COLOR,URINE Yellow (YELLOW); GLUCOSE, URINE (UA) Negative (NEGATIVE); KETONES,URINE Trace (NEGATIVE); LEUKOCYTE ESTERASE ,URINE 1+ (NEGATIVE); NITRITE,URINE Negative (NEGATIVE); PH,URINE 5.5 (5-9); PROTEIN,URINE Negative (NEGATIVE); URINE, BLOOD Negative (NEGATIVE); UROBILINOGEN,URINE 0.2 (0.2)
[2023-05-13 19:53] LABS: BACTERIA,URINE 2+ (NOT PRESENT); SQUAMOUS EPITHELIAL CELL,UR 0-2 (0-5)
[2023-05-14] MEDS: DUONEB NEB SCH (05:19)
[2023-05-14 05:29] LABS: BASOPHILS % (AUTO) 0.3 % (0.0-3.0); EOSINOPHILS # (AUTO) 0.4 K/ul (0.0-0.7); EOSINOPHILS % (AUTO) 6.7 % (0.0-7.0); HEMATOCRIT 36.8 % (37.0-47.0); HEMOGLOBIN 11.2 g/dl (12.0-16.0); IMMATURE GRANULOCYTE % (AUTO) 0.2 % (0.0-5.0); LYMPHOCYTES # (AUTO) 1.8 K/uL (0.60-3.4); LYMPHOCYTES % (AUTO) 28.2 (10.0-50.0); MEAN CORPUSCULAR HEMOGLOBIN 27.1 pg (27.0-31.0); MEAN CORPUSCULAR HGB CONC 30.4 (31.8-35.4); MEAN CORPUSCULAR VOLUME 89.1 fl (81.0-99.0); MONOCYTES # (AUTO) 0.7 K/uL (0.4-2.0); MONOCYTES % (AUTO) 10.9 (0-10); NEUTROPHILS # (AUTO) 3.4 K/ul (2.0-6.9); NEUTROPHILS % (AUTO) 53.7 % (42.2-75.2); PLATELET COUNT 167 10^3/uL (140-440); RDW COEFFICIENT OF VARIATION 15.5 % (11.6-14.8); RED BLOOD COUNT 4.13 10^6/ul (4.20-5.40); WHITE BLOOD COUNT 6.31 K/ul (4.6-10.2)
[2023-05-14 05:38] LABS: PROTHROMBIN TIME 10.4 SEC (9.3-11.0)
[2023-05-14 05:44] LABS: ALANINE AMINOTRANSFERASE 17.2 U/L (0-35); ALBUMIN 3.39 g/dL (3.5-5.0); ALKALINE PHOSPHATASE 80.9 U/L (53-141); ASPARTATE AMINO TRANSFERASE 35.4 U/L (14-36); BILIRUBIN,TOTAL 0.37 mg/dL (0.2-1.3); BLOOD UREA NITROGEN 44.8 mg/dL (7-17); CALCIUM 8.35 mg/dL (8.4-10.2); CARBON DIOXIDE 28.6 mmol/L (22-30.0); CHLORIDE 103.9 mmol/L (98-107); CREATININE 1.43 mg/dL (0.60-1.30); GLUCOSE 144.9 mg/dL (74-106); POTASSIUM 4.18 mmol/L (3.5-5.1); SODIUM 134.7 mmol/L (134.5-145); TOTAL PROTEIN 7.5 g/dL (6.3-8.2)
[2023-05-14] MEDS ORDERED: LANTUS SUBCUT SCH (07:30)
[2023-05-14] MEDS ORDERED: SODIUM CHLORIDE 1,000 ML IV SCH (08:30)
[2023-05-14] MEDS: NEURONTIN PO SCH (08:45)
[2023-05-14] MEDS: MYRBETRIQ PO SCH (08:46)
[2023-05-14] MEDS: CARDIZEM CD PO SCH (08:46)
[2023-05-14] MEDS: LEXAPRO PO SCH (08:46)
[2023-05-14] MEDS: INDERAL PO SCH (08:46)
[2023-05-14] MEDS: ALTACE PO SCH (08:46)
[2023-05-14] MEDS: PROTONIX PO SCH (08:47)
[2023-05-14] MEDS: NYSTOP POWDER TP SCH (08:49)
[2023-05-14] MEDS ORDERED: VEKLURY 100 MG in SODIUM CHLORIDE 100ML 100 ML IV SCH (09:00)
[2023-05-14] MEDS: DECADRON IVP SCH (09:35)
[2023-05-14] MEDS: FLONASE NAS PRN (10:40)
--- NOTE | 2023-05-14 10:57 | DCSUM ---
Admission Date Admission Date: 05/11/23 Discharge Date Discharge Date: 05/14/23 Admission Diagnosis Admission Diagnosis: 1. Acute Hypoxic Respiratory Failure in the setting of Covid-19 2. Covid-19 3. Diabetes Mellitus, Type 2 4. Hypertension 5. Hyperlipidemia Discharge Diagnosis Discharge Diagnosis: 1. Acute Hypoxic Respiratory Failure in the setting of Covid-19 - Improving 2. Covid-19 - Improving 3. Diabetes Mellitus, Type 2 - Chronic, stable 4. Hypertension - Chronic, stable 5. Hyperlipidemia - Chronic, stable Hospital Provider Hospital Provider: PAYAL LEONG, [facility] Primary Care Physician Primary Care Physician: VALENTINO GARCES Summary of History and Physical Summary of History and Physical: 78 yo female presented to the ER with diarrhea over last several days. Patient has pmh of dementia and is unable to provide HPI. She does report not feeling well over the last several days and her daughter brought her here. Per ER provider, patient was found to be hypoxic in the ER with O2 sat around 90%. Placed on 2L and sat improved to 95-96%. Patient was found to be Covid positive. 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 She has been refusing medications to help with treatment of Covid-19. Discussed importance of them and is refusing all IV medications to help with condition. If condition continues to worsen, will have further discussion with family. Hospital Course Subjective: During hospital stay, patient has continued to refuse treatment other than oxygen and nebulizer treatments. Offered patient remdesivir and steroids. Yesterday, patient decided to take remdesivir and it infiltrated in her L arm. Refused further IV placement. Renal function declined overnight. Offered IV fluids and patient refused those as well. However, patient has continued to require oxygen during stay. Attempted to wean off this am. 3 step oximetry completed and patient dropped to 86%. Requiring 2L to maintain sat above 94%. Patient requesting discharge on oxygen. All home medications continued. No changes made. Appearance: Pleasant, No Apparent Distress and Alert HEENT: MMM, Supple and No JVD CVS: No Murmur and No Rubs Abdomen: Soft, Non-Tender and No Distention Respiratory: No Dyspnea Extremities: No Edema Vital Signs: Most Recent Vital Signs Temperature 97.3 F L 05/14/23 05:53 Temperature Source Temporal Artery Scan 05/14/23 05:53 Temperature Source Oral 05/11/23 14:55 Pulse Rate 69 05/14/23 05:53 Respiratory Rate 22 H 05/14/23 05:53 Blood Pressure 141/62 H 05/14/23 05:53 Blood Pressure Mean 88 05/14/23 05:53 Blood Pressure Right Arm 167/78 05/11/23 21:05 Blood Pressure Location Right Arm 05/14/23 05:53 Blood Pressure Position Supine 05/14/23 02:00 O2 Sat by Pulse Oximetry 89 L 05/14/23 05:53 Oxygen Delivery Method Room Air 05/14/23 09:00 Oxygen Flow Rate 2 05/14/23 05:14 Height 5 ft 4 in 05/11/23 21:05 Weight 242 lb 6 oz 05/11/23 21:05 Telemetry Type Bedside Monitor 05/14/23 07:00 Telemetry Monitoring Continues 05/14/23 07:00 Telemetry Heart Rate 71 05/14/23 07:00 Telemetry SPO2 94 05/14/23 07:00 EKG NH Interval 0.11 L 05/14/23 07:00 EKG QRS Interval 0.09 05/14/23 07:00 Telemetry Strip Reading NSR 05/14/23 07:00 Lab Results Last 24 Hours: 05/14/23 05/13/23 05:18 15:50 WBC 6.31 RBC 4.13 L Hgb 11.2 L Hct 36.8 L MCV 89.1 MCH 27.1 MCHC 30.4 L RDW Coeff of Venus 15.5 H Plt Count 167 Immature Gran % (Auto) 0.2 Neut % (Auto) 53.7 Lymph % (Auto) 28.2 [place] % (Auto) 10.9 H Eos % (Auto) 6.7 Baso % (Auto) 0.3 Neut # (Auto) 3.4 Lymph # (Auto) 1.8 [place] # (Auto) 0.7 Eos # (Auto) 0.4 Baso # (Auto) 0.0 Immature Gran # (Auto) 0.0 PT 10.4 INR 1.00 Sodium 134.7 Potassium 4.18 Chloride 103.9 Carbon Dioxide 28.6 Anion Gap 6.38 BUN 44.8 H Creatinine 1.43 H Estimated GFR (MDRD) 35.00 BUN/Creatinine Ratio 31.32 Glucose 144.9 H Calcium 8.35 L Total Bilirubin 0.37 AST 35.4 ALT 17.2 Alkaline Phosphatase 80.9 Total Protein 7.50 Albumin 3.39 L Globulin 4.11 Albumin/Globulin Ratio 0.82 Urine Color Yellow Urine Clarity Slightly Urine pH 5.5 Ur Specific [place] 1.025 Urine Protein Negative Urine Glucose (UA) Negative Urine Ketones Trace H Urine Blood Negative Urine Nitrite Negative Urine Bilirubin Negative Urine Urobilinogen 0.2 Ur Leukocyte Esterase 1+ H Urine Microscopic WBC 5-10 Ur Squamous Epith Cells 0-2 Urine Bacteria 2+ Discharge Instructions Discharge Planning: Discharge Planning > 40 minutes If patient is discharged with left ventricular systolic dysfunction: NA Discharged with a beta jade? [] If no, why not? [] Discharged with an jarrett/arb? [] If no, why not? [] DX: ACUTE HYPOXIC RESPIRATORY FAILURE, COVID19 RX: OXYGEN FOLLOW-UP WITH PCP NEXT WEEK ACTIVITY TOLERATED DIABETIC DIET Discharge Medications: Medications at Discharge (Home Meds & RX) nirmatrelvir 300 mg (150 mg x2)-ritonavir 100 mg tablet,dose pack (Paxlovid) See Rx Instructions PO .COMPLEX #30 ea 05/11/23 buspirone 5 mg tablet 5 mg PO TID PRN anxiety 05/12/23 diltiazem HCl 120 mg capsule,extended release 24 hr (Cardizem CD) 120 mg PO DAILY 05/12/23 escitalopram oxalate 20 mg tablet 20 mg PO DAILY 05/12/23 fluticasone propionate 50 mcg/actuation nasal spray,suspension (24 Hour Allergy Relief) 1 spray intranasal DAILY PRN allergy symptoms 05/12/23 gabapentin 600 mg tablet 600 mg PO BID 05/12/23 hydrochlorothiazide 12.5 mg capsule 12.5 mg PO DAILY 05/12/23 hydrocodone 5 mg-acetaminophen 325 mg tablet 1 tab PO Q6H 05/12/23 insulin glargine 100 unit/mL (3 mL) subcutaneous pen (Lantus Solostar U-100 Insulin) 20 unit subcut DAILY 05/12/23 insulin lispro 100 unit/mL subcutaneous pen 1 sliding scale dose subcut DIRECTED 05/12/23 mirabegron 25 mg tablet,extended release 24 hr (Myrbetriq) 25 mg PO DAILY nystatin 100,000 unit/gram topical powder 1 applic topical BID 05/12/23 pantoprazole 40 mg tablet,delayed release 40 mg PO BID 05/12/23 propranolol 20 mg tablet 20 mg PO DAILY 05/12/23 ramipril 5 mg capsule 5 mg PO DAILY 05/12/23 Discharge Plan Discharge Discharge Orders: Discharge Patient (ONCE); Ordered 05/14/23 Ordered By: JOSEF SERNA Activity Restrictions/Additional Instructions: Diabetic diet Activity as tolerated Follow-up with PCP next week 2L oxygen via [place] No changes to home medications Instructions: Using Oxygen at Home (GEN), COVID-19 (Coronavirus Disease 2019) (ED), Social Distancing Guidelines for COVID-19 (GEN) Patient Disposition: HOME SELF-CARE Prescriptions: Continued diltiazem HCl [Cardizem CD] 120 mg capsule,extended release 24hr 120 mg PO DAILY propranolol 20 mg tablet 20 mg PO DAILY fluticasone propionate [24 Hour Allergy Relief] 50 mcg/actuation spray,suspension 1 spray intranasal DAILY PRN (Reason: allergy symptoms) Rx Instructions: administer into each nostril Myrbetriq 25 mg tablet extended release 24 hr 25 mg PO DAILY buspirone 5 mg tablet 5 mg PO TID PRN (Reason: anxiety) hydrocodone-acetaminophen 5-325 mg tablet 1 tab PO Q6H pantoprazole 40 mg tablet,delayed release (DR/EC) 40 mg PO BID hydrochlorothiazide 12.5 mg capsule 12.5 mg PO DAILY gabapentin 600 mg tablet 600 mg PO BID ramipril 5 mg capsule 5 mg PO DAILY nystatin 100,000 unit/gram powder 1 applic topical BID escitalopram oxalate 20 mg tablet 20 mg PO DAILY insulin glargine [Lantus Solostar U-100 Insulin] 100 unit/mL (3 mL) insulin pen 20 unit subcut DAILY insulin lispro 100 unit/mL insulin pen 1 sliding scale dose subcut DIRECTED Did you review [place] [employer] EXPORT AGENT for ALL controlled substances?: No Discussed opioids are addictive and Narcan is available by prescription or from pharmacy.: No Condition: Good Referrals: VALENTINO GARCES [Primary Care Provider] - Stand Alone Forms: Work/School Release ED
[2023-05-14 12:03] VITALS: BP 94/49; PULSE 74; RESP 14; TEMP 97.1
== END 2023-05-14 14:00 | disposition home or self-care (01) ==
LOC: SCU 14:40 → ED 14:40 → SCU 20:50
PROVIDERS: ADMIT Hospitalist; ATTEND Nurse Practitioner Family
DX: I10 Essential (primary) hypertension; Z79.899 Other long term (current) drug therapy; E11.9 Type 2 diabetes mellitus without complications; J96.01 Acute respiratory failure with hypoxia; F03.90 Unspecified dementia, unspecified severity, without behavioral disturbance, psychotic disturbance, mood disturbance, and anxiety; E78.5 Hyperlipidemia, unspecified; R53.1 Weakness; R19.7 Diarrhea, unspecified; U07.1 COVID-19; Z51.81 Encounter for therapeutic drug level monitoring; Z79.4 Long term (current) use of insulin